=== PATIENT | male | born 1990 | race Hispanic/Latino ===

== ENCOUNTER 2017-06-29 02:02 | Emergency (ER) | payer SELFPAY ==
--- NOTE | 2017-06-29 02:07 | ED PDOC ---
Arrival/HPI - General Time Seen by Provider: 06/29/17 02:03 Historian: Patient, EMS EM Caveat: Intoxicated - History of Present Illness Narrative History of Present Illness (Text): 06/29/17 02:06 27 year old male, with no significant past medical history, presents to the emergency department by Joe for alcohol intoxication. Patient was found in the street. Patient admits to drinking. HPI and ROS limited due to patient's current states of intoxication. Activities at Onset: Light Context: Street Past Medical History - Provider Review Nursing Documentation Reviewed: Yes Family/Social History - Physician Review Nursing Documentation Reviewed: Yes Family/Social History: No Known Family HX Allergies/Home Meds Allergies/Adverse Reactions: Allergies No Known Allergies Allergy (Unverified 06/29/17 02:03) Home Medications: Home Meds Medication Instructions Recorded Confirmed Unobtainable 06/29/17 06/29/17 Review of Systems - Physician Review All systems were reviewed & negative as marked: Yes - Review of Systems Systems not reviewed;Unavailable: Intoxicated Physical Exam Vital Signs Reviewed: Yes Vital Signs Temp Pulse Resp BP Pulse Ox 06/29/17 09:00 97.8 F 83 16 116/69 100 06/29/17 07:00 98.1 F 76 18 112/70 99 06/29/17 02:08 98.0 F 90 18 97/59 L 100 Temperature: Afebrile Blood Pressure: Normal Pulse: Bradycardic Respiratory Rate: Normal Appearance: Positive for: Well-Appearing, Non-Toxic, Comfortable Pain Distress: None - Systems Exam Head: Present: Atraumatic, Normocephalic Pupils: Present: PERRL Extroacular Muscles: Present: EOMI Conjunctiva: Present: Normal Mouth: Present: Moist Mucous Membranes, Other (Alcohol on breath) Neck: Present: Normal Range of Motion Respiratory/Chest: Present: Clear to Auscultation, Good Air Exchange. No: Respiratory Distress, Accessory Muscle Use Cardiovascular: Present: Regular Rate and Rhythm, Normal S1, S2. No: Murmurs Abdomen: Present: Normal Bowel Sounds. No: Tenderness, Distention, Peritoneal Signs Back: Present: Normal Inspection Upper Extremity: Present: Normal Inspection. No: Cyanosis, Edema Lower Extremity: Present: Normal Inspection. No: Edema Neurological: Present: GCS=15, CN II-XII Intact, Speech Normal Skin: Present: Warm, Dry, Normal Color. No: Rashes Psychiatric: Present: Alert, Normal Insight, Normal Concentration Medical Decision Making ED Course and Treatment: 06/29/17 02:06 Impression: 27 year old male presents for public alcohol intoxication. Plan: -- Fingerstick -- Reassess and disposition Progress Notes: 06/29/17 03:57 Patient was awake and alert. Patient began walking around and attempted to leave. Code Rader was called. 06/29/17 04:43 Patient is agitated and cursing. Patient is not willing to cooperate. Patient is currently in restraints and will be sedated for the safety of the staff. - Medication Orders Current Medication Orders: Discontinued Medications Lorazepam (Ativan) 2 mg IM ONCE ONE PRN Reason: Protocol Stop: 06/29/17 04:42 Last Admin: 06/29/17 04:53 Dose: 2 mg IM Administration Charges Document 06/29/17 04:53 SS (Rec: 06/29/17 04:53 SS [id number]) Injection Site MAR Injection Site Right Deltoid Charges for Administration # of IM Administrations 1 Ziprasidone (Geodon Inj) 20 mg IM STAT STA PRN Reason: Protocol Stop: 06/29/17 04:42 Last Admin: 06/29/17 04:53 Dose: 20 mg IM Administration Charges Document 06/29/17 04:53 SS (Rec: 06/29/17 04:54 SS [id number]) Injection Site MAR Injection Site Left Deltoid Charges for Administration # of IM Administrations 1 - Scribe Statement The provider has reviewed the documentation as recorded by the Sneha Flores Provider Scribe Attestation: All medical record entries made by the Sneha were at my direction and personally dictated by me. I have reviewed the chart and agree that the record accurately reflects my personal performance of the history, physical exam, medical decision making, and the department course for this patient. I have also personally directed, reviewed, and agree with the discharge instructions and disposition. Disposition/Present on Arrival - Present on Arrival Any Indicators Present on Arrival: No - Disposition Have Diagnosis and Disposition been Completed?: Yes Diagnosis: Alcohol intoxication, Dehydration, General medical exam Disposition: HOME/ ROUTINE Disposition Time: 07:00 Condition: STABLE Discharge Instructions (ExitCare): Dehydration (ED), Alcohol Intoxication (ED) Print Language: OCCITAN Additional Instructions: Make sure to see your doctor in 1-2 days DRINK PLENTY OF FLUIDS DONT SMOKE if you smoke DONT drink alcohol take your medications as prescribed RETURN TO ED IF worse pain, cant breath, persistent vomiting, high fever >101- 102 for hours, altered behavior, unable to urinate, heavy/persistent bleeding, passing out, chest pain, or other medical emergencies Referrals: [facility] Jassi Retorsten, [Primary Care Provider] - Follow up with primary Forms: [employer] (Chinese)
--- NOTE | 2017-06-29 07:19 | ED PDOC ---
Physical Exam Vital Signs Reviewed: Yes Vital Signs Temp Pulse Resp BP Pulse Ox 06/29/17 07:00 98.1 F 76 18 112/70 99 06/29/17 02:08 98.0 F 90 18 97/59 L 100 Temperature: Afebrile Blood Pressure: Hypotensive (slightly decr BP) Pulse: Regular Respiratory Rate: Normal Appearance: Positive for: Well-Appearing, Comfortable Pain Distress: None Mental Status: Positive for: Alert and Oriented X 3 Finger Stick Blood Glucose: 103 - Systems Exam Head: Present: Atraumatic, Normocephalic Pupils: Present: PERRL Extroacular Muscles: Present: EOMI Conjunctiva: Present: Normal Mouth: Present: Dry, Other (no drooling/stridor, no exudate/lesions, no dysphonia) Pharnyx: Present: Normal Nose (External): Present: Atraumatic Neck: Present: Normal Range of Motion Respiratory/Chest: Present: Clear to Auscultation, Good Air Exchange. No: Respiratory Distress, Accessory Muscle Use Cardiovascular: Present: Regular Rate and Rhythm, Normal S1, S2. No: Murmurs Abdomen: Present: Normal Bowel Sounds. No: Tenderness, Distention, Peritoneal Signs Back: Present: Normal Inspection Upper Extremity: Present: Normal Inspection. No: Cyanosis, Edema Lower Extremity: Present: Normal Inspection. No: Edema Neurological: Present: GCS=15, CN II-XII Intact, Speech Normal Skin: Present: Warm, Dry, Normal Color. No: Rashes Psychiatric: Present: Alert, Oriented x 3, Normal Insight, Normal Concentration , Other (slight flat affect) Medical Decision Making ED Course and Treatment: 06/29/17 07:17 Case signed out to me by dr Gomez; pt is awaiting sobriety and repeate clinical evaluation, pt can be dispositioned accordingly. 06/29/17 07:40 pt currently is sober and alert/awake, oriented x 3 pt is not in any distress pt is pleasant and conversant pt denied SI/HI, pt denied any hallucinations - visual/tactile/auditory 06/29/17 08:15 pt is currently sleeping 06/29/17 09:56 pt remained comfortable pt is not in any distress pt states he is currently NOT SI/HI, pt denied hallucinations pt is clinically sober pt is awake/alert pt is oriented x 3 pt is able to ambulate with ease pt is made aware of his medical results pt is encouraged fluids pt is encouraged no smoking/drinking pt will f/u as directed pt will be discharged home Re-evaluation Time: 09:30 Reassessment Condition: Improved - Medication Orders Current Medication Orders: Discontinued Medications Lorazepam (Ativan) 2 mg IM ONCE ONE PRN Reason: Protocol Stop: 06/29/17 04:42 Last Admin: 06/29/17 04:53 Dose: 2 mg IM Administration Charges Document 06/29/17 04:53 SS (Rec: 06/29/17 04:53 SS [id number]) Injection Site MAR Injection Site Right Deltoid Charges for Administration # of IM Administrations 1 Ziprasidone (Geodon Inj) 20 mg IM STAT STA PRN Reason: Protocol Stop: 06/29/17 04:42 Last Admin: 06/29/17 04:53 Dose: 20 mg IM Administration Charges Document 06/29/17 04:53 SS (Rec: 06/29/17 04:54 SS [id number]) Injection Site MAR Injection Site Left Deltoid Charges for Administration # of IM Administrations 1 - Scribe Statement The provider has reviewed the documentation as recorded by the Sneha Awan Provider Scribe Attestation: All medical record entries made by the Scribmumtaz were at my direction and personally dictated by me. I have reviewed the chart and agree that the record accurately reflects my personal performance of the history, physical exam, medical decision making, and the department course for this patient. I have also personally directed, reviewed, and agree with the discharge instructions and disposition. Disposition/Present on Arrival - Present on Arrival Any Indicators Present on Arrival: No History of DVT/PE: No History of Uncontrolled Diabetes: No Urinary Catheter: No History of Decub. Ulcer: No History Surgical Site Infection Following: None - Disposition Have Diagnosis and Disposition been Completed?: Yes Diagnosis: Alcohol intoxication, Dehydration, General medical exam Disposition: HOME/ ROUTINE Disposition Time: 10:00 Patient Plan: Discharge Condition: STABLE Discharge Instructions (ExitCare): Alcohol Intoxication (ED), Dehydration (ED) Print Language: DIVEHI Additional Instructions: Make sure to see your doctor in 1-2 days DRINK PLENTY OF FLUIDS DONT SMOKE if you smoke DONT drink alcohol take your medications as prescribed RETURN TO ED IF worse pain, cant breath, persistent vomiting, high fever >101- 102 for hours, altered behavior, unable to urinate, heavy/persistent bleeding, passing out, chest pain, or other medical emergencies Referrals: [facility] Jassi Retorsten, [Primary Care Provider] - Follow up with primary Forms: [employer] (Panamanian)
[2017-06-29 10:35] VITALS: BP 116/69; PULSE 83; RESP 16; TEMP 97.8; O2SAT 100
== END 2017-06-29 10:00 | disposition home or self-care (01) ==
LOC: ED 02:02
DX: F10.129 Alcohol abuse with intoxication, unspecified (principal); E86.0 Dehydration; Z00.00 Encounter for general adult medical examination without abnormal findings
CPT/HCPCS: 96372; 99284; J2060; J3486